=== PATIENT | male | born 1985 | race American Indian/Alaskan Native ===

== ENCOUNTER 2018-10-15 10:49 | Emergency (ER) | payer SELFPAY ==
[2018-10-15 11:00] VITALS: BP 155/92
[2018-10-15] MEDS ORDERED: FLEXERIL PO ONE (11:47)
[2018-10-15] MEDS ORDERED: TORADOL IM ONE (11:47)
--- NOTE | 2018-10-15 11:54 | Emergency Department Report ---
HPI - General Chief Complaint: Back Pain/Injury Time Seen by Provider: 10/15/18 11:23 - HPI HPI: 33-year-old male presents to the ED with a history of lumbar radiculopathy with sciatica presents complaining of spastic type muscle pain starting on an as lo wer back and radiates down his thighs. Patient states he ambulates well with a cane. Patient states he was scheduled for surgery last July but due to insurance issues he was not able to get the surgery done. Patient states that he is currently stain had a mental institution called [facility]. Patient states that his back spasms is acting up and he does not have any medications. Patient states that his primary care physician is at [facility] and he has not seen him in the past 6 months due to the fact that he is pain institutionalized here in [place]. And has not gotten his insurance back. He denies any recent fall, injury, head pain, blurry vision loss of consciousness or chest pain shortness of breath ED Past Medical Hx - Past Medical History Hx Psychiatric Treatment: Yes (bipolar, schizophrenia, depression) Additional medical history: degenerative diseas - Social History Smoking Status: Current Every Day Smoker Substance Use Type: Alcohol - Medications Home Medications: Home Medications Medication Instructions Recorded Confirmed Last Taken Type Nitrofurantoin Manatee/M-Cryst 100 mg PO Q12HR #14 capsule 06/04/18 Unknown Rx [Macrobid CAP] Ondansetron [Zofran Odt] 4 mg PO Q8H PRN #10 tab.rapdis 06/04/18 Unknown Rx Duloxetine HCl [Cymbalta] 20 mg PO QDAY #30 capsule. 10/15/18 Unknown Rx Gabapentin [Neurontin] 400 mg PO Q8HR #30 capsule 10/15/18 Unknown Rx Ibuprofen [Motrin] 800 mg PO Q8HR #40 tablet 10/15/18 Unknown Rx ED Review of Systems ROS: Stated complaint: PINCHED LUMBAR/FEET NUMB/SPASMS Other details as noted in HPI Constitutional: denies: chills, fever Eyes: denies: eye pain, eye discharge, vision change ENT: denies: ear pain, throat pain Respiratory: denies: cough, shortness of breath, wheezing Cardiovascular: denies: chest pain, palpitations Endocrine: no symptoms reported Gastrointestinal: denies: abdominal pain, nausea, vomiting, diarrhea Genitourinary: denies: urgency, dysuria, frequency, hematuria Musculoskeletal: back pain, arthralgia, myalgia. denies: joint swelling Skin: denies: rash, lesions, pruritus Neurological: denies: headache, weakness, paresthesias Psychiatric: denies: anxiety, depression, auditory hallucinations, visual hallucinations, suicidal thoughts Hematological/Lymphatic: denies: easy bleeding, easy bruising Physical Exam - Physical Exam Vital Signs: Vital Signs 10/15/18 10:57 Temperature 97.8 F Pulse Rate 106 H Respiratory 20 Rate Blood Pressure 155/92 O2 Sat by Pulse 99 Oximetry Physical Exam: GENERAL: Alert and oriented x3, no apparent distress, Normal Gait with a cane, atraumatic. HEAD: Head is normocephalic and a-traumatic. NECK: Supple. Non edematous, No lymphadenopathy or thyromegaly. No C-spine tenderness, full range of motion LUNGS: Symetrical with respiration, No wheezing, no rales or crackles, CTAB. HEART: S1, S2 present, regular rate and rhythm without murmur, no rubs, no gallops. Non tender to palpation BACK: Full range of motion, no spinal tenderness, Tenderness to palpation of the latissimus dorsi muscles of the back EXTREMITIES/MUSCULOSKELETAL: No cyanosis, clubbing, rash, lesions or edema. Full ROM bilaterally. UE/LE Pulses 2+ bilaterally. LE and UE 5+ strength bilaterally, NEUROLOGIC: The patient is cooperative with no focal neurologic deficits. SKIN: Warm and dry, No lesions, No ulceration or induration present. ED Course Vital Signs 10/15/18 10:57 Temperature 97.8 F Pulse Rate 106 H Respiratory 20 Rate Blood Pressure 155/92 O2 Sat by Pulse 99 Oximetry ED Medical Decision Making - Medical Decision Making 33-year-old male presented lumbar radiculopathy with sciatica ED course: Patient received Toradol and Flexeril in ED. Vital signs are normal patient is in no acute distress Discussed with patient follow-up with primary care physician. Discussed the patient and take medications as prescribed. Patient has no neurological deficit. Patient is alert and oriented 3 and understands all instructions given. Discussed drowsiness effect of Flexeril makes her drowsy and not to operate machinery while taking flexeril Critical care attestation.: If time is entered above; I have spent that time in minutes in the direct care of this critically ill patient, excluding procedure time. ED Disposition Clinical Impression: Lumbar radiculopathy, Sciatica Disposition: TO HOME OR SELFCARE Is pt being admited?: No Does the pt Need Aspirin: No Condition: Stable Instructions: Lumbar Radiculopathy (ED), Arthralgia (ED), Sciatica (ED) Additional Instructions: Make sure to follow up with the primary care physician as discussed. Take all your medications as you've been prescribed. If you have any worsening symptoms or develop new symptoms please return to ED immediately. Prescriptions: Duloxetine HCl [Cymbalta] 20 mg PO QDAY #30 capsule. Gabapentin [Neurontin] 400 mg PO Q8HR #30 capsule Ibuprofen [Motrin] 800 mg PO Q8HR #40 tablet Referrals: JOSIANE REED MD [Staff Physician] - 3-5 Days [facility] [Outside] - 3-5 Days [facility] [Outside] - 3-5 Days [facility] [Outside] - 3-5 Days Time of Disposition: 12:12
== END 2018-10-15 12:37 | disposition home or self-care (01) ==
LOC: ED 10:49 → MERGE 10:49 → ED 12:37
DX: M54.16 Radiculopathy, lumbar region (principal); F31.9 Bipolar disorder, unspecified; F20.9 Schizophrenia, unspecified; F17.200 Nicotine dependence, unspecified, uncomplicated
CPT/HCPCS: 96372; 99282; J1885

== ENCOUNTER 2018-10-29 12:57 | Emergency (ER) | payer OTHER ==
[2018-10-29] MEDS ORDERED: IBUPROFEN PO PRN (13:20)
[2018-10-29] MEDS ORDERED: PERCOCET 5/325 PO PRN (13:20)
[2018-10-29 13:36] LABS: Basophils # (Auto) 0.1 K/mm3 (0.0-0.1); Basophils % (Auto) 0.8 % (0.0-1.8); Eosinophils # (Auto) 0.4 K/mm3 (0.0-0.4); Eosinophils % (Auto) 4.9 % (0.0-4.3); Hematocrit 43.7 % (35.5-45.6); Hemoglobin 14.2 gm/dl (11.8-15.2); Lymphocytes # (Auto) 2.6 K/mm3 (1.2-5.4); Lymphocytes % (Auto) 28.9 % (13.4-35.0); Mean Corpuscular HGB Conc 32 % (32-34); Mean Corpuscular Volume 82 fl (84-94); Monocytes # (Auto) 0.5 K/mm3 (0.0-0.8); Monocytes % (Auto) 6.2 % (0.0-7.3); Platelet Count 273 K/mm3 (140-440); Red Blood Count 5.35 M/mm3 (3.65-5.03); Red Cell Distribution Width 15.1 % (13.2-15.2)
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
[2018-10-29 13:53] LABS: BUN/Creatinine Ratio 9; Blood Urea Nitrogen 7 mg/dL (9-20); Calcium 9.6 mg/dL (8.4-10.2); Hemolysis Index 12
[2018-10-30] MEDS ORDERED: PEPCID PO ONE (00:17)
[2018-10-30] MEDS ORDERED: IBUPROFEN PO ONE (08:13)
[2018-10-30] MEDS: CYMBALTA PO SCH (09:47)
[2018-10-30] MEDS ORDERED: ZOLOFT PO SCH (10:00)
[2018-10-30 10:52] LABS: Bilirubin,Urine NEG (Negative); Blood,Urine NEG (Negative); Color,Urine Yellow (Yellow); Mucus,Urine FEW /HPF; Protein,Urine <15 mg/dL mg/dL (Negative); Urobilinogen,Urine < 2.0 mg/dL (<2.0); WBC,Urine < 1.0 /HPF (0.0-6.0)
[2018-10-30 11:04] LABS: Amphetamine Screen,Urine PRESUMPTIVE NEGATIVE; Benzodiazepines Screen,Urine PRESUMPTIVE NEGATIVE; Cannabinoid Screen,Urine PRESUMPTIVE NEGATIVE; Cocaine Screen,Urine PRESUMPTIVE NEGATIVE; Methadone Screen,Urine PRESUMPTIVE NEGATIVE; Opiate Screen,Urine PRESUMPTIVE NEGATIVE
--- NOTE | 2018-10-30 12:16 | Consultation ---
History of Present Illness - Reason for Consult Consult date: 10/30/18 Reason for consult: Mental Health Evaluation Requesting physician: SAV COVINGTON - Chief Complaint Chief complaint: "No need to live" - History of Present Psychiatric Illness 33 y.o. AA male who presented to the ER for SI's with a plan to strangle himself. Today the patient is calm during the assessment. he stated that he want to kill himself because of his life isn't right. He stated that he injured his back, unemployed, and currently homeless. He stated that he do not communicate with his family that's located in [place], [place]. He stated being a patient at several mental health facilities recently because he was suicidal. He acknowledged a previous suicide attempt when asked. He denies HI's and AVH's. He denies a poor appetite, but stated that his sleep is "off." He denies any manic episodes in the past. He denies recreational drug use and alcohol consumption (etoh). He stated the take Cymbalta and Seroquel for Bipolar DO. Medications and Allergies Allergies Allergy/AdvReac Type Severity Reaction Status Date / Time No Known Allergies Allergy Unverified 10/29/18 12:59 Active Meds: Active Medications Duloxetine HCl (Cymbalta) 60 mg PO DAILY [facility] Last Admin: 10/30/18 09:47 Dose: 60 mg Documented by: Quetiapine Fumarate (Seroquel) 50 mg PO QHS [facility] Last Admin: 10/29/18 22:00 Dose: 50 mg Documented by: Past psychiatric history - Past Medical History Past Medical History: other (DDD) Past Surgical History: No surgical history - past Psychiatric treatment and history psychiatric treatment history: Several inpatient psy setting in the past. Fam hx of substance abuse and mood do's. - Social History Social history: other (Homeless) Mental Status Exam - Vital signs Last Vital Signs Temp 97.4 F L 10/30/18 01:05 Pulse 94 H 10/30/18 01:05 Resp 18 10/30/18 10:39 BP 102/57 10/30/18 01:05 Pulse Ox 98 10/30/18 10:39 - Exam Narrative exam: MSE: Appearance: calm Behavior: regular eye contact Speech: regular rate and tone Mood: "mentally tired" Affect: flat Thought Process: circumstantial Thought Content: denies HI's and VH's Motor Activity: sitting up in bed Cognition: A/O x3 Insight: fair Judgment: poor Results Result Diagrams: 10/29/18 13:18 10/29/18 13:18 Abnormal lab results 10/29/18 10/29/18 10/29/18 Range/Units 13:18 13:18 13:18 RBC (3.65-5.03) M/mm3 MCV (84-94) fl MCH (28-32) pg Eos % (Auto) (0.0-4.3) % BUN 7 L (9-20) mg/dL Salicylates < 0.3 L (2.8-20.0) mg/dL Acetaminophen < 5.0 L (10.0-30.0) ug/mL 10/29/18 Range/Units 13:18 RBC 5.35 H (3.65-5.03) M/mm3 MCV 82 L (84-94) fl MCH 26 L (28-32) pg Eos % (Auto) 4.9 H (0.0-4.3) % BUN (9-20) mg/dL Salicylates (2.8-20.0) mg/dL Acetaminophen (10.0-30.0) ug/mL All other labs normal. Assessment and Plan Assessment and plan: Impression: Unspecified Mood DO. Today the patient is calm and cooperative during the assessment. The patient endorses SI's. DDx: MDD, Bipolar DO Recommendation/Plan: Continue 1013 and home medication Cymbalta 60 mg PO daily and Seroquel 100 mg PO HS. Discussed possible suicidality/medication induced anthony with the patient. Also discussed possible metabolic side effects of Seroquel with the patient. Dipso: The patient was referred to inpatient psy services. Will staff with Dr Carter.
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
[2018-10-31] MEDS ORDERED: IBUPROFEN ONE (10:18)
[2018-10-31] MEDS: CYMBALTA PO SCH (10:20)
[2018-10-31 13:20] VITALS: BP 129/89
== END 2018-10-31 13:18 ==
LOC: ED 12:57 → EEVIPCON 12:57 → ED 10-31 13:18
DX: F31.9 Bipolar disorder, unspecified (principal); M51.36 Other intervertebral disc degeneration, lumbar region; Z59.0 Homelessness
CPT/HCPCS: 36415; 80048; 80307; 81001; 85025; 99284; G0480; 80320

== ENCOUNTER 2018-11-18 19:56 | Emergency (ER) | payer SELFPAY ==
--- NOTE | 2018-11-18 20:20 | Emergency Department Report ---
Blank Doc - Documentation Documentation: 33 y.o. male presents to ED for suicidal ideation and back pain. Hx bipolar, schizophrenia, sciatica, and DDD Positive suicide attempt today with a tie. cc of low back pain radiating to BLE. Was released from [facility] in [place] 7 days ago. PlaN: Labs Main side for eval
[2018-11-18] MEDS ORDERED: HALDOL IM PRN (20:43)
[2018-11-18] MEDS ORDERED: ATIVAN IM PRN (20:43)
--- NOTE | 2018-11-18 20:43 | Emergency Department Report ---
ED General Adult HPI - General Chief complaint: Psych Stated complaint: SUICIDAL/THOUGHTS/MH EVAL Time Seen by Provider: 11/18/18 20:15 Source: patient, RN notes reviewed, old records reviewed Mode of arrival: Ambulatory Limitations: No Limitations - History of Present Illness Initial comments: This is a 33-year-old gentleman. His past medical history includes obesity, depression, bipolar, chronic radiculopathy patient presents to the emergency room today with a complaint of suicidality, depression, hopelessness, plan to hang or strangle himself. Symptoms constant, do not radiate anywhere, and he reports no exacerbating, relieving factors. He reports a secondary complaint of chronic radicular back pain, right-sided paralumbar, that radiates down the right lower extremity. This is neither knew, worsened or different. He denies fevers, chills, urinary symptoms, bladder or bowel retention or incontinence. He is on chronic gabapentin, and ibuprofen for his pain. -: Gradual Location: back Radiation: extremity Severity scale (0 -10): 10 Quality: burning Consistency: intermittent Improves with: medication, rest Worsens with: movement - Related Data Previous Rx's Medication Instructions Recorded Last Taken Type Nitrofurantoin [place]/M-Cryst 100 mg PO Q12HR #14 capsule 06/04/18 Unknown Rx [Macrobid CAP] Ondansetron [Zofran Odt] 4 mg PO Q8H PRN #10 tab.rapdis 06/04/18 Unknown Rx Duloxetine HCl [Cymbalta] 20 mg PO QDAY #30 capsule. 10/15/18 Unknown Rx Gabapentin [Neurontin] 400 mg PO Q8HR #30 capsule 10/15/18 Unknown Rx Ibuprofen [Motrin] 800 mg PO Q8HR #40 tablet 10/15/18 Unknown Rx Allergies Allergy/AdvReac Type Severity Reaction Status Date / Time No Known Allergies Allergy Verified 11/18/18 20:19 ED Review of Systems ROS: Stated complaint: SUICIDAL/THOUGHTS/MH EVAL Other details as noted in HPI Constitutional: denies: fever Eyes: denies: vision change ENT: denies: epistaxis Respiratory: denies: cough Cardiovascular: denies: chest pain Gastrointestinal: denies: abdominal pain Genitourinary: denies: urgency, dysuria Musculoskeletal: back pain Skin: denies: lesions Neurological: paresthesias Psychiatric: depression, suicidal thoughts ED Past Medical Hx - Past Medical History Previous Medical History?: Yes Hx Psychiatric Treatment: Yes (bipolar, schizophrenia, depression) Additional medical history: anxiety. depression. pinched nerve. DDD. bipolar. siatica - Surgical History Past Surgical History?: No - Social History Smoking Status: Current Every Day Smoker Substance Use Type: None - Medications Home Medications: Home Medications Medication Instructions Recorded Confirmed Last Taken Type Nitrofurantoin [place]/M-Cryst 100 mg PO Q12HR #14 capsule 06/04/18 Unknown Rx [Macrobid CAP] Ondansetron [Zofran Odt] 4 mg PO Q8H PRN #10 tab.rapdis 06/04/18 Unknown Rx Duloxetine HCl [Cymbalta] 20 mg PO QDAY #30 capsule. 10/15/18 Unknown Rx Gabapentin [Neurontin] 400 mg PO Q8HR #30 capsule 10/15/18 Unknown Rx Ibuprofen [Motrin] 800 mg PO Q8HR #40 tablet 10/15/18 Unknown Rx ED Physical Exam - General Limitations: No Limitations General appearance: alert, in no apparent distress, obese - Head Head exam: Present: atraumatic, normocephalic - Eye Eye exam: Present: normal appearance, EOMI. Absent: nystagmus - ENT ENT exam: Present: normal exam, normal orophraynx, mucous membranes moist, nor mal external ear exam - Neck Neck exam: Present: normal inspection, full ROM. Absent: tenderness, meningismus - Respiratory Respiratory exam: Present: normal lung sounds bilaterally. Absent: respiratory distress - Cardiovascular Cardiovascular Exam: Present: regular rate, normal rhythm, normal heart sounds. Absent: bradycardia, tachycardia, irregular rhythm, systolic murmur, diastolic murmur, rubs, gallop - GI/Abdominal GI/Abdominal exam: Present: soft. Absent: distended, tenderness, guarding, rebound, rigid, pulsatile mass - Rectal Rectal exam: Present: deferred - Extremities Exam Extremities exam: Present: normal inspection, full ROM, other (2+ pulses noted in the bilateral upper, lower extremities. Compartments soft. No long bony tenderness. The pelvis is stable.). Absent: pedal edema, calf tenderness - Back Exam Back exam: Present: normal inspection, full ROM. Absent: tenderness, CVA tenderness (R), paraspinal tenderness, vertebral tenderness - Neurological Exam Neurological exam: Present: alert, oriented X3, CN II-XII intact, motor sensory deficit (there is chronic decrease sensation to light touch in the right lower extremity. Sensation intact to light touch in the bilateral upper extremities and left lower extremity. There is 5 out of 5 strength in the bilateral upper, lower extremities) - Psychiatric Psychiatric exam: Present: depressed, suicidal ideation - Skin Skin exam: Present: warm, dry, intact, normal color. Absent: rash ED Course Vital Signs 11/18/18 20:16 Temperature 98.2 F Pulse Rate 100 H Respiratory 18 Rate Blood Pressure 160/97 O2 Sat by Pulse 98 Oximetry ED Medical Decision Making - Lab Data Result diagrams: 11/18/18 20:38 11/18/18 20:38 Vital Signs 11/18/18 20:16 Temperature 98.2 F Pulse Rate 100 H Respiratory 18 Rate Blood Pressure 160/97 O2 Sat by Pulse 98 Oximetry Lab Results 11/18/18 11/18/18 11/18/18 Range/Units 20:38 20:38 20:38 WBC 14.9 H (4.5-11.0) K/mm3 RBC 5.08 H (3.65-5.03) M/mm3 Hgb 13.4 (11.8-15.2) gm/dl Hct 41.4 (35.5-45.6) % MCV 81 L (84-94) fl MCH 26 L (28-32) pg MCHC 32 (32-34) % RDW 15.8 H (13.2-15.2) % Plt Count 312 (140-440) K/mm3 Lymph % (Auto) 22.0 (13.4-35.0) % [place] % (Auto) 8.0 H (0.0-7.3) % Eos % (Auto) 1.2 (0.0-4.3) % Baso % (Auto) 0.6 (0.0-1.8) % Lymph # 3.3 (1.2-5.4) K/mm3 [place] # 1.2 H (0.0-0.8) K/mm3 Eos # 0.2 (0.0-0.4) K/mm3 Baso # 0.1 (0.0-0.1) K/mm3 Seg Neutrophils % 68.2 (40.0-70.0) % Seg Neutrophils # 10.1 H (1.8-7.7) K/mm3 Sodium 143 (137-145) mmol/L Potassium 3.9 (3.6-5.0) mmol/L Chloride 102.8 (98-107) mmol/L Carbon Dioxide 26 (22-30) mmol/L Anion Gap 18 mmol/L BUN 14 (9-20) mg/dL Creatinine 1.0 (0.8-1.5) mg/dL Estimated GFR > 60 ml/min BUN/Creatinine Ratio 14 % Glucose 97 (75-100) mg/dL Calcium 8.8 (8.4-10.2) mg/dL Total Creatine Kinase (55-170) units/L Salicylates < 0.3 L (2.8-20.0) mg/dL Acetaminophen (10.0-30.0) ug/mL Plasma/Serum Alcohol (0-0.07) % 11/18/18 11/18/18 11/18/18 Range/Units 20:38 20:38 20:38 WBC (4.5-11.0) K/mm3 RBC (3.65-5.03) M/mm3 Hgb (11.8-15.2) gm/dl Hct (35.5-45.6) % MCV (84-94) fl MCH (28-32) pg MCHC (32-34) % RDW (13.2-15.2) % Plt Count (140-440) K/mm3 Lymph % (Auto) (13.4-35.0) % [place] % (Auto) (0.0-7.3) % Eos % (Auto) (0.0-4.3) % Baso % (Auto) (0.0-1.8) % Lymph # (1.2-5.4) K/mm3 [place] # (0.0-0.8) K/mm3 Eos # (0.0-0.4) K/mm3 Baso # (0.0-0.1) K/mm3 Seg Neutrophils % (40.0-70.0) % Seg Neutrophils # (1.8-7.7) K/mm3 Sodium (137-145) mmol/L Potassium (3.6-5.0) mmol/L Chloride (98-107) mmol/L Carbon Dioxide (22-30) mmol/L Anion Gap mmol/L BUN (9-20) mg/dL Creatinine (0.8-1.5) mg/dL Estimated GFR ml/min BUN/Creatinine Ratio % Glucose (75-100) mg/dL Calcium (8.4-10.2) mg/dL Total Creatine Kinase 229 H (55-170) units/L Salicylates (2.8-20.0) mg/dL Acetaminophen < 5.0 L (10.0-30.0) ug/mL Plasma/Serum Alcohol < 0.01 (0-0.07) % - Medical Decision Making Differential diagnosis, including but not limited to: Depression, suicidality, mood disorder, chronic radiculopathy Assessment and plan: 33-year-old gentleman with a primary complaint of depression and suicidality. He is afebrile, with reassuring vital signs, and tachycardia has resolved on my physical examination. He is placed on a 1013. Screening laboratory studies have been obtained, and are unremarkable. Leukocytosis is reviewed and appreciated, the patient's current clinical presentation is not consistent with an acute bacterial infection or illness. Hi s presentation is not consistent or suggestive of bacteremia or viremia. The patient has chronic radiculopathy, which is not new, worsening or different, he has no midline spinal tenderness, no fever, no pulsatile abdominal mass, and currently no clinical evidence of an acute epidural compression syndrome. We will treat his pain. An elevated leukocyte count in and of itself, without supporting and corroborating clinical or historical evidence of infection, does not merit further invasive investigation in the emergency room, other than observation, and reassessment if there is a change in the patient's clinical course. In and of itself, it is not a contraindication to psychiatric admission, evaluation and consultation. We will continue the patient's outpatient medications, patient placed on a 1013, and psychiatric consultation has been requested. At this point in time, there does not appear to be an immediate medical contraindication to psychiatric admission, evaluation and consultation. Critical care attestation.: If time is entered above; I have spent that time in minutes in the direct care of this critically ill patient, excluding procedure time. ED Disposition Clinical Impression: Chronic radicular lumbar pain, Medical clearance for psychiatric admission Disposition: [id number]/[id number] PSY HOSP/PSY UNIT Is pt being admited?: No Does the pt Need Aspirin: No Condition: Good Referrals: VAHID RODRIGUEZ MD [Primary Care Provider] - 3-5 Days
[2018-11-18 20:47] LABS: Basophils # (Auto) 0.1 K/mm3 (0.0-0.1); Basophils % (Auto) 0.6 % (0.0-1.8); Eosinophils # (Auto) 0.2 K/mm3 (0.0-0.4); Eosinophils % (Auto) 1.2 % (0.0-4.3); Hematocrit 41.4 % (35.5-45.6); Hemoglobin 13.4 gm/dl (11.8-15.2); Lymphocytes # (Auto) 3.3 K/mm3 (1.2-5.4); Mean Corpuscular HGB Conc 32 % (32-34); Mean Corpuscular Volume 81 fl (84-94); Monocytes # (Auto) 1.2 K/mm3 (0.0-0.8); Platelet Count 312 K/mm3 (140-440); Red Blood Count 5.08 M/mm3 (3.65-5.03); Red Cell Distribution Width 15.8 % (13.2-15.2)
[2018-11-18 20:58] LABS: BUN/Creatinine Ratio 14; Blood Urea Nitrogen 14 mg/dL (9-20); Calcium 8.8 mg/dL (8.4-10.2); Hemolysis Index 3
[2018-11-18 21:40] LABS: Amphetamine Screen,Urine PRESUMPTIVE NEGATIVE; Benzodiazepines Screen,Urine PRESUMPTIVE NEGATIVE; Cannabinoid Screen,Urine PRESUMPTIVE NEGATIVE; Cocaine Screen,Urine PRESUMPTIVE NEGATIVE; Methadone Screen,Urine PRESUMPTIVE NEGATIVE; Opiate Screen,Urine PRESUMPTIVE NEGATIVE
[2018-11-18] MEDS ORDERED: IBUPROFEN PO PRN (21:40)
[2018-11-18 22:06] LABS: Bacteria,Urine 1+ /HPF (Negative); Bilirubin,Urine NEG (Negative); Blood,Urine NEG (Negative); Color,Urine Yellow (Yellow); Mucus,Urine FEW /HPF; Protein,Urine <15 mg/dL mg/dL (Negative); Sperm,Urine 2+ /HPF (NP)
[2018-11-19] MEDS ORDERED: NON-FORMULARY (Gabapentin [Neurontin] 600 MG) PO SCH (08:00)
[2018-11-19] MEDS: NEURONTIN PO SCH ×3 (08:58→20:30)
[2018-11-19] MEDS ORDERED: NON-FORMULARY (Duloxetine Hcl [Cymbalta] 120 MG) PO SCH (10:00)
[2018-11-19] MEDS ORDERED: CYMBALTA PO SCH (10:00)
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
[2018-11-19 21:16] VITALS: BP 125/89
== END 2018-11-19 22:42 ==
LOC: ED 19:56
DX: F25.0 Schizoaffective disorder, bipolar type (principal); M54.16 Radiculopathy, lumbar region; F17.200 Nicotine dependence, unspecified, uncomplicated
CPT/HCPCS: 36415; 80048; 80307; 81001; 82550; 85025; 99285; G0480; 80320